=== PATIENT | female | born 1990 | race Caucasian/White ===

== ENCOUNTER 2016-09-13 05:55 | Emergency (ER) | payer SELFPAY ==
[~2016-09-13] VITALS: Ht 160 cm; Wt 97.5 kg
--- NOTE | ~2016-09-13 | CT4 ---
[facility] A Service of [facility] RADIOLOGY TEXT RESULTS PATIENT: LEO ROCA LOCATION: [facility] : [birth year] UNIT #: [id number] AGE: [address]: Da Ray MD SEX: F ORDER DR: [id number] [place] [id number] [facility]. [place], [place] [address] [id number] E MR#: [id number] Acc #: [id number] NAME: LEO ROCA. : 1990 SEX: F STUDY DATE/TIME: 09/13/2016 7:52 UNIT: [facility] ROOM: STUDY DESCRIPTION: CT Abd and Pelv Wo Cont Attending Physician: Da Ray M.D. Ordering Physician: [facility] MEDICAL IMAGING REPORT This report is preliminary unless electronic signature is present EXAM CT abdomen and pelvis INDICATIONS Right lower quadrant abdominal pain. Left lower quadrant abdominal pain. Nausea. TECHNIQUE CT abdomen and pelvis without contrast. Coronal and sagittal reconstructions were obtained. This CT exam was performed with one or more of the following radiation dose reduction techniques: automatic exposure control, adjustment of mA and/or kV according to patient size, and iterative reconstruction. COMPARISON None available. FINDINGS ABDOMEN: No urinary calculi. No hydronephrosis. Remainder of the solid abdominal organs are within normal limits on this non-contrasted study. The bowel is not dilated. The appendix is normal. The abdominal aorta is normal in caliber. PELVIS: No pelvic mass. Uterus and ovaries are unremarkable. There is a small volume of free pelvic fluid. This is likely physiologic. No acute osseous abnormalities. There is some mild right sacroiliitis. Please correlate for any evidence of an HLA zero negative spondylo-arthropathy. [facility] A Service of [facility] RADIOLOGY TEXT RESULTS PATIENT: LEO ROCA LOCATION: [facility] : [birth year] UNIT #: [id number] AGE: [address]: Da Ray MD SEX: F ORDER DR: IMPRESSION 1. Small volume of free fluid the pelvis is likely physiologic. 2. Otherwise, there are no acute findings. No urinary calculi. No hydronephrosis. 3. Appendix is normal. Dictated by... Nima Tang M.D. THIS IS AN ELECTRONICALLY VERIFIED REPORT Nima Tang M.D. at 09/13/2016 2:15 PM RPC/maryuri TD: 09/13/2016 09:51 JOB #: [id number] MEDICAL IMAGING REPORT Page 1 of 1 COPY
[~2016-09-13 05:55] MED LIST: BENZONATATE PO; CLINDAMYCIN GEL; FLONASE 0.05% N16 G1; VOLTAREN75 MG PO
[2016-09-13 06:25] LABS: BASOPHIL# 0.2 X10e3 (0-0.3); BASOPHIL% 1.2 % (0-2.5); EOSINOPHIL# 0.2 X10e3 (0-0.7); EOSINOPHIL% 1.1 % (0.0-7.0); HEMATOCRIT 38.9 % (35.0-45.0); HEMOGLOBIN 12.6 gm/dL (12.0-16.0); LYMPHOCYTE# 3.1 X10e3 (1.0-3.5); LYMPHOCYTE% 22.6 % (17.0-45.0); MEAN CELL VOLUME 82.2 FL (83-96); MEAN CORPUSCULAR HEMOGLOBIN 26.6 PG (28-34); MEAN CORPUSCULAR HGB CONC 32.3 g/dL (30-36); MEAN PLATELET VOLUME 9.1 FL (6.5-11.5); MONOCYTE# 0.7 X10e3 (0-1.0); MONOCYTE% 5.2 % (3.0-12.0); NEUTROPHIL# 9.5 X10e3 (1.5-7.1); NEUTROPHIL% 69.9 % (40-75); PLATELET COUNT 283 X10e3 (140-420); RED BLOOD COUNT 4.73 X10e (3.90-5.30); RED CELL DISTRIBUTION WIDTH 17.2 % (11.0-15.5); WHITE BLOOD COUNT 13.7 X10e3 (4.0-10.5)
[2016-09-13 06:28] LABS: DIFF IND NO
[2016-09-13 07:00] LABS: ALBUMIN SERUM 3.6 g/dL (3.5-5.0); ALKALINE PHOSPHATASE 77 U/L (32-92); ALT (SGPT) 16 U/L (10-40); AMYLASE 17 U/L (0-46); AST (SGOT) 15 U/L (10-42); BILIRUBIN,TOTAL 0.3 mg/dL (0.2-2.0); BLOOD UREA NITROGEN 11 mg/dL (9-23); BUN/CREATININE RATIO 12.22; CALCIUM SERUM 8.7 mg/dL (8.4-10.2); CARBON DIOXIDE 23 mmol/L (22-31); CHLORIDE 105 mmol/L (100-111); CREATININE SERUM 0.9 mg/dL (0.6-1.4); GLOM FILT RATE Estimated 87.1 mL/min (>60); GLUCOSE FASTING 144 mg/dL (70-110); LIPASE 27 U/L (22-51); PROTEIN TOTAL SERUM 6.9 g/dL (6.0-8.3); SODIUM 136 mmol/L (135-145)
[2016-09-13 07:12] LABS: BILIRUBIN, DIRECT <0.1 mg/dL (0.0-0.2); BILIRUBIN,INDIRECT 0.2 mg/dL (0.0-0.9)
[2016-09-13 09:14] LABS: URINE SOURCE CLEAN CATCH
[2016-09-13 09:26] LABS: URINE APPEARANCE CLEAR; URINE BILIRUBIN NEG (NEG); URINE BLOOD NEG (NEG); URINE COLOR YELLOW; URINE GLUCOSE NEG (NEG); URINE KETONE NEG (NEG); URINE LEUKOCYTE ESTERASE NEG (NEG); URINE NITRATE NEG (NEG); URINE PH 7.5 (5-8); URINE PROTEIN NEG (NEG); URINE SPECIFIC GRAVITY 1.024 (1.003-1.035)
[2016-09-13 09:31] LABS: CULTURE INDICATED? NO
== END 2016-09-13 09:55 | disposition home or self-care (01) ==
LOC: CED 05:55
PROVIDERS: Emergency Medicine
DX: R10.31 Right lower quadrant pain (principal); F17.200 Nicotine dependence, unspecified, uncomplicated; Z88.8 Allergy status to other drugs, medicaments and biological substances; Z79.899 Other long term (current) drug therapy
CPT/HCPCS: 36415; 74176; 80048; 80076; 81003; 82150; 83690; 84703; 85025; 96372; 96374; 96375; 99284; J0500; J1885; J2405

== ENCOUNTER 2016-09-24 04:26 | Emergency (ER) | payer OTHER ==
[~2016-09-24] VITALS: Ht 160 cm; Wt 97.5 kg
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
[2016-09-24] MEDS ORDERED: NO MEDICATIONS (04:42)
== END 2016-09-24 07:13 | disposition home or self-care (01) ==
LOC: SED 04:26
DX: S06.0X0A Concussion without loss of consciousness, initial encounter (principal); S13.9XXA Sprain of joints and ligaments of unspecified parts of neck, initial encounter; S33.5XXA Sprain of ligaments of lumbar spine, initial encounter; S40.012A Contusion of left shoulder, initial encounter; F17.200 Nicotine dependence, unspecified, uncomplicated; F41.9 Anxiety disorder, unspecified; F32.9 Major depressive disorder, single episode, unspecified; Y04.2XXA Assault by strike against or bumped into by another person, initial encounter; Y92.009 Unspecified place in unspecified non-institutional (private) residence as the place of occurrence of the external cause
CPT/HCPCS: 70450; 72100; 72125; 73000; 99284